=== PATIENT | male | born 2000 | race Caucasian/White ===

== ENCOUNTER 2018-12-02 01:42 | Inpatient (IN) ==
[2018-12-02] MEDS ORDERED: XYLOCAINE 1%/SOD BICARB 20 ML VIAL INFIL ONE (02:05)
[2018-12-02 02:13] LABS: Basophils # (auto) 0.04 K/uL (0-0.2); Basophils % (auto) 0.5 %; Eosinophils % (auto) 1.3 %; Hematocrit (blood only) 45.1 % (42-52); Hemoglobin 16.4 g/dL (14.0-18.0); Immature Granulocytes # (auto) 0.04 K/uL (0.00-0.02); Immature Granulocytes % (auto) 0.5 %; Lymphocytes # (auto) 3.79 K/uL (1.2-3.4); Lymphocytes % (auto) 49.5 %; Mean Corpuscular Hgb Conc 36.4 g/dL (32-36); Mean Corpuscular Volume 84.9 fL (80-100); Mean Platelet Volume 8.7 fL (7.4-10.4); Monocytes # (auto) 0.66 K/uL (0.11-0.59); Monocytes % (auto) 8.6 %; Neutrophils # (auto) 3.02 K/uL (1.4-6.5); Neutrophils % (auto) 39.6 %; Platelet Count 248 K/uL (130-400); RDW Coefficient of Variation 13.5 % (11.5-14.5); RDW Standard Deviation 41.5 fL (36.4-46.3); Red Blood Count 5.31 M/uL (4.7-6.1); White Blood Count 7.65 K/uL (4.8-10.8)
[2018-12-02 02:30] LABS: Albumin Level 4.4 gm/dl (3.4-5.0); Calcium 8.9 mg/dl (8.5-10.1); Creatinine Clr Calc Pharmacy 116.3 ml/min; Est GFR (African American) 144.7; Est GFR (Non-African American) 124.8; Potassium 4.1 mmol/L (3.5-5.1)
[2018-12-02 02:40] LABS: Albumin Globulin Ratio 1.3 (0.9-2); Bilirubin,Total 0.7 mg/dl (0.2-1); Globulin 3.4 gm/dl (2.5-4.0); Total Protein 7.8 gm/dl (6.4-8.2)
[2018-12-02 02:44] LABS: Acetaminophen < 2 ug/ml (10-30); Salicylate < 1.7 mg/dl (2.8-20)
[2018-12-02] MEDS ORDERED: IBUPROFEN 600 MG TAB PO STA (04:06)
[2018-12-02 05:33] LABS: Appearance Urine Clear (Clear); Bilirubin Urine Negative (Negative); Blood Urine Negative (Negative); Color Urine Yellow; Glucose Urine UA Negative (Negative); Ketones Urine Negative (Negative); Leukocyte Esterase Urine Negative (Negative); Nitrite Urine Negative (Negative); Protein Urine Negative (Negative); Specific Gravity Urine 1.022 (1.000-1.030); Urobilinogen Urine Negative (Negative); pH Urine 5.5 (4.5-7.5)
[2018-12-02 05:52] LABS: Amphetamines+Metham, Urine Neg (Neg); Barbiturates, Urine Neg (Neg); Benzodiazepine, Urine Neg (Neg); Cocaine, Urine Neg (Neg); MDMA (Ecstacy), Urine Neg (Neg); Methadone, Urine Neg (Neg); Opiate, Urine Neg (Neg); Phencyclidine, Urine Neg (Neg)
--- NOTE | 2018-12-02 06:03 | Emergency Department Note ---
Entered by Morena Yee acting as a scribe for History of Present Illness General Chief complaint: Mental Health Evaluation Source: patient Limitations: no limitations History of Present Illness Onset (ago): hour(s) (1.5) Location: upper extremity (left wrist) Severity: similar to prior episodes Pain Consistency: + other (episode of laceration) Quality: + other (laceration) Associated symptoms: + denies other symptoms The patient is a 18 year old male who presents to the Emergency Room with complaints of two lacerations on his left wrist that occurred 1.5 hours ago. He states that he cut himself with a razor with the intent to kill himself. The patient notes that he had a similar episode of self-harm a few days ago, but this laceration is more severe. He states that he was drinking alcohol at a friend's place prior to the episode of self-harm. The patient reports that he was dropped off at home by a friend, and his friend tried to "talk him off the edge." He states that his friend removed anything that he felt could have been harmful, but he did not remove the razor blades. The patient states that he cut himself tonight, because he's "not really happy." He notes that it was a "slow and steady build up" to the episode of self-harm this morning. He states that he "doesn't feel like he'd go through killing himself." The patient states that he called the police, because he realized "how bad it was." He denies any other symptoms. The patient reports that he speaks to a professional about his depression reg ularly, noting that he calls when he's in [place] and meets in-person when he's at home. He states that his parents know about his history of depression, but they do not know about his history of self-harm. The patient reports that he's "doing fine" in school. He admits to drinking socially. The patient denies any health problems. He notes a history of depression, stating that it has been worsening recently. Home Medications Home Medications Medication Instructions Recorded Confirmed Type escitalopram oxalate [Lexapro] 20 mg PO DAILY 12/02/18 12/02/18 History Allergies Allergy/AdvReac Type Severity Reaction Status Date / Time No Known Allergies Allergy Verified 12/02/18 02:05 Past Med/Surg History Medical History Depression Self-harming behavior Family History Other No pertinent family history Social History Communication Ability: Effective Current Living Situation: Alone current occupational status: student Feels Safe at Home: Yes Smoking Status: Never smoker Review of Systems See HPI for pertinent positives & negatives. and A total of 10 systems reviewed and were otherwise negative Physical Exam Vital Signs Vital Signs - 24 hr 12/02/18 01:46 12/02/18 03:12 12/02/18 05:17 Pulse Rate 89 Pulse Rate [Right] 65 67 Pulse Rhythm Regular Respiratory Rate 16 16 18 Respiratory Effort / Characteristics Non-Labored Spontaneous Non-Labored Spontaneous Non-Labored Spontaneous Respiratory Depth Normal Normal Normal Respiratory Pattern Regular Blood Pressure 134/85 Blood Pressure [Right Arm] 117/70 116/75 Blood Pressure Mean 101 Blood Pressure Mean [Right Arm] 85 88 Blood Pressure Position Sitting Blood Pressure Position [Right Arm] Sitting Pulse Oximetry 98 99 97 Oxygen Delivery Method Room Air Room Air Room Air 12/02/18 06:39 Pulse Rate 53 L Pulse Rate [Right] Pulse Rhythm Respiratory Rate 18 Respiratory Effort / Characteristics Respiratory Depth Respiratory Pattern Blood Pressure 113/51 L Blood Pressure [Right Arm] Blood Pressure Mean Blood Pressure Mean [Right Arm] Blood Pressure Position Blood Pressure Position [Right Arm] Pulse Oximetry 98 Oxygen Delivery Method Room Air HEENT: Head - normocephalic and atraumatic Pupils are equal, round, and reactive to light. Extraocular eye muscles are intact, and sclera are anicteric. Nose - moist nasal mucosa without discharge. Mouth - moist buccal mucosa. Oropharynx is nonerythematous and there is no tonsillar exudate or edema noted. Neck: Supple; no JVD, nuchal rigidity, cervical lymphadenopathy, or auscultated bruits. Heart: Regular rate and rhythm. There is a normal S1 and S2 with no murmurs, clicks, or gallops appreciated. Lungs: Clear to auscultation bilaterally with no wheezes, rales, or rhonchi. Abdomen: Soft, completely nontender, nondistended, with good bowel sounds. There are no palpable pulsatile masses or hepatosplenomegaly. There is no guarding, rigidity, or rebound noted. Extremities: No evidence of cyanosis, clubbing, or edema. There are easily palpable peripheral pulses. Left ventral wrist has 2 lacerations. The distal laceration is superficial, and the proximal laceration is deeper. The proximal laceration will need sutures, and it is 3 cm in length. Skin: warm and dry with good turgor and no rashes. Psych: Flat affect. Admits to increasing depression and self-harm. Procedures Free Text Procedures Location: left wrist Total length: 3cm Complexity: simple Verbal consent was obtained. A time out was taken and the correct patient and site identified. The skin was prepped with betadine. The target area was anesthetized with 1.5 ml of 1% lidocaine without epinephrine. Copious irrigation was performed using sterile water. The skin was re-prepped with betadine and a sterile field set. The wound was explored for foreign bodies and none found. Examination revealed no injury to deep structures such as tendons, bone, or significant blood vessels. Debridement was not performed. The wound edges were approximated using 5, 4-0 simple interrupted ethilon sutures. Hemostasis and excellent approximation was achieved. Antibacterial ointment and a sterile dressing applied. Detailed wound care instructions and signs and symptoms of infection reviewed with the patient. No complications and the patient tolerated the procedure well. Course 0147: Past medical records reviewed. The patient was evaluated in room A08, and a complete history and physical examination were performed. Labs were drawn as above. 0301: I performed a laceration repair on the patient. 0405: The patient complained of wrist pain. 0406: Motrin 600 mg PO. The patient will be more sober around 5 AM. He will be evaluated by the ED psychiatric keycase assembler at that time 0546: I spoke with the patient about his options, and he states that he would sign himself in. 0621: The patient was admitted to [address] [place] [address]. Administered Medications Discontinued Medications Ibuprofen (Motrin) 600 mg PO NOW STA Stop: 12/02/18 04:07 Last Admin: 12/02/18 04:12 Dose: 600 mg Documented by: [id number] Lidocaine HCl (Buffered Lidocaine 1%) 20 ml INFIL NOW ONE Stop: 12/02/18 02:06 Last Admin: 12/02/18 03:05 Dose: 20 ml Documented by: [id number] Medical Decision Making Differential Diagnosis The differential diagnosis includes: suicide attempt, self-mutilation, mood disorder, and depression Medical Records Attestation: I reviewed the patient's medical records. Home Medications Current Medication List: was personally reviewed by me Laboratory Data Attestation: I reviewed the patient's lab results. Result diagrams: 12/02/18 02:01 12/02/18 02:01 Lab Results 12/02/18 12/02/18 12/02/18 Range/Units 02:01 02:01 02:01 WBC 7.65 (4.8-10.8) K/uL RBC 5.31 (4.7-6.1) M/uL Hgb 16.4 (14.0-18.0) g/dL Hct 45.1 (42-52) % MCV 84.9 (80-100) fL MCH 30.9 (25-34) pg MCHC 36.4 H (32-36) g/dL RDW Std Deviation 41.5 (36.4-46.3) fL RDW Coeff of Jeff 13.5 (11.5-14.5) % Plt Count 248 (130-400) K/uL MPV 8.7 (7.4-10.4) fL Immature Gran % (Auto) 0.5 % Neut % (Auto) 39.6 % Lymph % (Auto) 49.5 % [place] % (Auto) 8.6 % Eos % (Auto) 1.3 % Baso % (Auto) 0.5 % Immature Gran # (Auto) 0.04 H (0.00-0.02) K/uL Neut # (Auto) 3.02 (1.4-6.5) K/uL Lymph # (Auto) 3.79 H (1.2-3.4) K/uL [place] # (Auto) 0.66 H (0.11-0.59) K/uL Eos # (Auto) 0.10 (0-0.5) K/uL Baso # (Auto) 0.04 (0-0.2) K/uL Sodium 144 (136-145) mmol/L Potassium 4.1 (3.5-5.1) mmol/L Chloride 109 H (98-107) mmol/L Carbon Dioxide 29 (21-32) mmol/L Anion Gap 6.0 (3-11) BUN 12 (7-18) mg/dl Creatinine 0.86 (0.6-1.4) mg/dl Est Cr Clr Drug Dosing 116.3 ml/min Est GFR ( Amer) 144.7 Est GFR (Non-Af Amer) 124.8 BUN/Creatinine Ratio 14.0 (10-20) Glucose 83 (70-99) mg/dl Calcium 8.9 (8.5-10.1) mg/dl Total Bilirubin 0.7 (0.2-1) mg/dl AST 24 (15-37) U/L ALT 31 (12-78) U/L Alkaline Phosphatase 102 (45-117) U/L Total Protein 7.8 (6.4-8.2) gm/dl Albumin 4.4 (3.4-5.0) gm/dl Globulin 3.4 (2.5-4.0) gm/dl Albumin/Globulin Ratio 1.3 (0.9-2) TSH 3.070 (0.300-4.500) uIu/ml Urine Color Urine Appearance (Clear) Urine pH (4.5-7.5) Ur Specific [place] (1.000-1.030) Urine Protein (Negative) Urine Glucose (UA) (Negative) Urine Ketones (Negative) Urine Blood (Negative) Urine Nitrite (Negative) Urine Bilirubin (Negative) Urine Urobilinogen (Negative) Ur Leukocyte Esterase (Negative) Salicylates < 1.7 L (2.8-20) mg/dl Urine Opiates Screen (Neg) Ur Methadone, Qual (Neg) Acetaminophen < 2 L (10-30) ug/ml Urine Barbiturates (Neg) Ur Phencyclidine (PCP) (Neg) U Amphetamin/Meth Scrn (Neg) MDMA (Ecstasy) Screen (Neg) U Benzodiazepines Scrn (Neg) Ur Cocaine Metabolite (Neg) U Marijuana (THC) Screen (Neg) Ethyl Alcohol mg/dL (0-3) mg/dl 12/02/18 12/02/18 12/02/18 Range/Units 02:01 05:23 05:23 WBC (4.8-10.8) K/uL RBC (4.7-6.1) M/uL Hgb (14.0-18.0) g/dL Hct (42-52) % MCV (80-100) fL MCH (25-34) pg MCHC (32-36) g/dL RDW Std Deviation (36.4-46.3) fL RDW Coeff of Jeff (11.5-14.5) % Plt Count (130-400) K/uL MPV (7.4-10.4) fL Immature Gran % (Auto) % Neut % (Auto) % Lymph % (Auto) % [place] % (Auto) % Eos % (Auto) % Baso % (Auto) % Immature Gran # (Auto) (0.00-0.02) K/uL Neut # (Auto) (1.4-6.5) K/uL Lymph # (Auto) (1.2-3.4) K/uL [place] # (Auto) (0.11-0.59) K/uL Eos # (Auto) (0-0.5) K/uL Baso # (Auto) (0-0.2) K/uL Sodium (136-145) mmol/L Potassium (3.5-5.1) mmol/L Chloride (98-107) mmol/L Carbon Dioxide (21-32) mmol/L Anion Gap (3-11) BUN (7-18) mg/dl Creatinine (0.6-1.4) mg/dl Est Cr Clr Drug Dosing ml/min Est GFR ( Amer) Est GFR (Non-Af Amer) BUN/Creatinine Ratio (10-20) Glucose (70-99) mg/dl Calcium (8.5-10.1) mg/dl Total Bilirubin (0.2-1) mg/dl AST (15-37) U/L ALT (12-78) U/L Alkaline Phosphatase (45-117) U/L Total Protein (6.4-8.2) gm/dl Albumin (3.4-5.0) gm/dl Globulin (2.5-4.0) gm/dl Albumin/Globulin Ratio (0.9-2) TSH (0.300-4.500) uIu/ml Urine Color Yellow Urine Appearance Clear (Clear) Urine pH 5.5 (4.5-7.5) Ur Specific [place] 1.022 (1.000-1.030) Urine Protein Negative (Negative) Urine Glucose (UA) Negative (Negative) Urine Ketones Negative (Negative) Urine Blood Negative (Negative) Urine Nitrite Negative (Negative) Urine Bilirubin Negative (Negative) Urine Urobilinogen Negative (Negative) Ur Leukocyte Esterase Negative (Negative) Salicylates (2.8-20) mg/dl Urine Opiates Screen Neg (Neg) Ur Methadone, Qual Neg (Neg) Acetaminophen (10-30) ug/ml Urine Barbiturates Neg (Neg) Ur Phencyclidine (PCP) Neg (Neg) U Amphetamin/Meth Scrn Neg (Neg) MDMA (Ecstasy) Screen Neg (Neg) U Benzodiazepines Scrn Neg (Neg) Ur Cocaine Metabolite Neg (Neg) U Marijuana (THC) Screen Neg (Neg) Ethyl Alcohol mg/dL 139.0 H (0-3) mg/dl Blood Pressure Blood Pressure Findings: Normal blood pressure Blood Pressure Disposition: did not require urgent referral MDM Narrative The patient is a 18 year old male who presents to the Emergency Room with complaints 2 lacerations on his left wrist that occurred 1.5 hours ago. The patient was drinking alcohol tonight when he felt more depressed. He broke apart a shaving razor to remove the razor blade to lacerate his left wrist. Once he began to bleed, he called 911. The patient admits that he was trying to harm himself. He had a similar attempt 2 days ago. Once the patient was medically cleared, he was evaluated by the ED psychiatric keycase assembler and decided he would sign himself in voluntarily. He was accepted on 3 S. Impression & Plan Self-inflicted laceration of wrist, Alcohol intoxication Discharge Plan Visit Data Chief Complaint: Mental Health Evaluation ED Provider: Dafne Rivas Discharge Problem: Self-inflicted laceration of wrist, Alcohol intoxication Patient Disposition: Admitted As Inpatient Discharge Instructions Interventions: ED Discharge Assessment Last Done: 12/02/18 06:39 Forms Stand Alone Forms: My [facility] Prescriptions Prescriptions: No Action escitalopram oxalate [Lexapro] 20 mg Tablet 20 mg PO DAILY RF: 0 Referrals Referrals: PCP,NO [Primary Care Provider] - Discharge Problem: Self-inflicted laceration of wrist Qualifiers: Encounter type: initial encounter Laterality: left Qualified Code(s): S61.512A - Laceration without foreign body of left wrist, initial encounter Alcohol intoxication Qualifiers: Complication of substance-induced condition: uncomplicated Qualified Code(s): F10.920 - Alcohol use, unspecified with intoxication, uncomplicated The scribe's documentation has been prepared under my direction and personally reviewed by me in its entirety. I confirm that the note above accurately reflects all work, treatment, procedures, and medical decision making performed by me.
[2018-12-02] MEDS ORDERED: ALUMINUM/MAGNESIUM SUSP 30 ML UDC PO PRN (06:13)
[2018-12-02] MEDS ORDERED: MAGNESIUM HYDROXIDE SUSP 30 ML UDC PO PRN (06:13)
[2018-12-02] MEDS ORDERED: ACETAMINOPHEN 325 MG TAB PO PRN (06:13)
[2018-12-02] MEDS ORDERED: SODIUM CHLORIDE 0.65% NA SOLN 45 ML (OCEAN) PRN (06:13)
[2018-12-02] MEDS ORDERED: BISMUTH SUBSALICYLATE PER ML OMNICELL CHARGE PO PRN (06:13)
--- NOTE | 2018-12-02 08:27 | History & Physical ---
Date of Service December 02, 2018 Impression / Recommendations Impression 18-year-old male admitted voluntarily for inpatient psychiatric treatment. Patient reporting worsening depressive symptoms along with episodes of suicidal ideation. Depressive symptoms occurring at baseline however SI precipitated by alcohol consumption. Active furtherance to include self-inflicted laceration to his left wrist, severe enough to require medical attention and sutures. Patient was willing for inpatient psychiatric treatment, and is agreeable to medication recommendations as he does not feel like his current regimen has been effective to improve his mood. We discussed various medication options including cross taper from escitalopram to another antidepressive agent (sertraline or fluoxetine discussed) or the option to add bupropion to augment his current regimen and improve mood and energy. Patient was provided with patient information on the medications discussed, as he desired to review the options further. Pt reports a preference to begin bupropion in combination with current dose of escitalopram 20mg. Risks, benefits, and potential side effects were discussed with the patient. Pt denies history of a seizure disorder. The patient verbalized understanding and is agreeable to begin bupropion SR 100mg qAM. During his admission, the patient will be encouraged to participate in group and recreational programming, consider outpatient supports to involve in a family meeting, and complete an adequate safety plan to utilize after discharge. Patient reports current outpatient providers close to home, but may benefit from more local support during the school year. We will explore this with him further. At this time, inpatient psychiatric treatment is medically necessary due to worsening condition, multiple episodes of SIB with "intent to harm", and current substance use behaviors which further precipitate suicidal ideation. Patient is at high risk of harm to self if discharged prior to medicating risk factors and completing an adequate safety plan. (1) Suicidal ideation: 12/02 - Admitted to a locked inpatient behavioral health unit, on q15 minute safety checks - Encourage medication initiation/adjustments as indicated - Encourage participation in group and recreational therapies - Gather collateral information from outpatient providers - Suggest family meeting to involve outpatient supports in safety planning - Arrange appropriate aftercare (2) Major depressive disorder with single episode: 12/02 - Reviewed response to current medication regimen; discussed options for antidepressant adjustments to better target current symptoms - Patient education information provided on sertraline, fluoxetine, and bupropion. - Pt reports preference for bupropion, will give 100mg-SR starting tomorrow morning; planning to continue escitalopram 20mg - Request records from outpatient providers - Encourage involvement of outpatient supports - Encourage development of healthy and effective coping strategies (3) Self-inflicted laceration of wrist: 12/02 - Lacerations to left wrist were examined, treated, and dressed in the [facility] room - We will continue to monitor her status during dressing changes - Bacitracin ordered for use as needed Encounter type: initial encounter Laterality: left Qualified Code(s): S61.512A - Laceration without foreign body of left wrist, initial encounter (4) Alcohol consumption binge drinkin/4 -Brief intervention was offered and accepted Intervention was greater than 5 min in length. Brief interventions include: 1. Assess Readiness to Quit, 2. Advise: Help Patient to Reduce or Abstain from Alcohol, 3. Agree: Set Specific, Feasible Goals, 4. Assist: Anticipate barriers, Problem-Solving Solutions. Social work to 5. Arrange: Referrals to appropriate treatment. Summary of intervention: The patient is in contemplation stage with regards to transtheoretical model of change. The patient is advised to decrease alcohol consumption due to depressant effects and risk of interactions with prescription medications. The patient was advised of recommendations for abstinence from alcohol and other abusable substances and to attend substance abuse treatment at discharge, and will be provided with recovery materials to continue to education self on how to cope with their condition without drinking. Pt is highly conside ring abstinence from alcohol use as he has noticed its effect on mood. Will continue to provide patient with appropriate supports to achieve this goal. Inventory Assets Strengths: support of friends and family; established outpatient providers Needs: Consideration of current substance use behaviors; adjustment to medication regimen Risk Factors Assessment Male: Yes : Yes Do You Have Access To A Gun?: No Health Problems: No Mental Health Diagnoses: Yes Substance Use Disorders: No Previous Attempt: No (but superficially cut wrists 1 week ago) Family History of Suicide: No Previous Psychiatric Hospitalization: No Hopelessness: Yes (occasionally) Smoker: No Protective Factors Assessment Jainism Beliefs: No : No Responsible for Young Children: No Employed: Yes (through the [email or web address]) Stable Relationships: No Supportive Family: Yes Good Rapport with Provider: Yes Psychiatric History Identifying Data CHRISTIAN DAMICO is a 18-year-old M who currently lives in an apartment and attends [employer]. Pt has a history of treatment for depression, and was admitted on 12/02/18 06:13 on a 201 voluntary commitment for worsening depressive symptoms, SI, and having deeply cut his left wrist. Information is gathered from the patient and is considered to be reliable. Chief Complaint "Um...last night we were drinking, having fun, but then my mood turned a little bit. I don't know why, but it's happened before". 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 Prior to admission the patient was reportedly consuming alcohol with friends, suicidal ideation developed, and patient had reportedly slit his left left wrist to the point of requiring sutures. It is reported that the patient called 911 after realizing that the lacerations were deep and needed medical attention. He does admit to a similar situation occurring about 1 week ago, with more superficial superficial cuts. Patient reports to this provider events of last evening which include the patient consuming alcohol with several of his close friends. He states they were having a good time, he was intoxicated, and then realized that his mood had "turned". The patient states that he had reported his worsening mood to his friend, who walked him home to his apartment. Patient states that his friend stayed with him, processed his mood and thoughts, and attempted to remove all sharp objects from his apartment prior to leaving. The patient states, "it was then that I di smantled the razor." Patient admits to making deep cuts to his left wrist, and states he was scared when he was unable to control the bleedingtherefore calling 911. The patient feels that his alcohol use contributed to the situation, as "this is not the first time, but I have always been drunk." Patient reports to this provider That he has noticed worsening mood over the last year, reaching this level of severity in the last 2 weeks. The patient states, "I feel like this is really because of internal stressors, nothing external. I am just not satisfied with who I am." The patient reports a difficult transition to the college setting and states that he had initially attended the [employer] for 1 semester after graduating from high school. He had difficulty making friends at [facility] [employer] and had visited the [facility] several times. The patient had made the decision to transfer to [employer] for his second semester freshman year, but was met with new challenges. He states he had a "awful roommate. He never showered and he was nocturnal." He states this greatly affected his sleep as well as his mood. The patient has been able to connect with several close fr iends but continues to struggle with the idea that "I still feel like I am missing out." The patient also holds himself to an academic standard, and although grades have not significantly changed, he is consistently worried about his academic performance. Patient also reports significant anxiety with public speaking stating, "if I find out a class has public speaking all drop it." He does not endorse any physical symptoms of acute anxiety, but does feel uncomfortable in these situations and therefore avoids them. The patient also states that he and his ex-girlfriend went through a breakup in the last 3 weeks. He states that they have been dating for 3 years but are "better as friends." Patient does not report this is a significant stressor, on the contrary stating that he felt "relieved." He states that they remain very close friends and that "she knows me better than anyone." The patient does have established outpatient providers: his psychiatrist, as well as a therapist he speaks with via phone once a week. He reports a limited number of medication trials, but does state he has been frustrated with previous medications. Most recently he has been taking escitalopram 20 mg, but is unsure if it is overly effective. He does state, "I think it is buffering something, but I am not sure how much it is helping." Other known psychotropic medication trials include Trintellix and trazodone, which he states he continues to take for sleep as needed. Patient endorses depressive symptoms of low mood, decreased energy, difficulty falling asleep, frequent nighttime awakening, general fatigue, and occasional feelings of hopelessness. The patient does endorse general feelings to "escape" when he is sober, but denies overt suicidal ideation, plan, or intent. We discussed his current alcohol use, in which he states he has recently been drinking to the point of getting drunk 3 nights a week. Patient states this was not generally normal for him, and that he has seen its effect on his mood. The patient states, "I know I need to cut back, ideally not do it at all. It is only when I am drunk that I get into the situations." The patient admits that in those moments, he does believe he is cutting with the "intent to harm." Pt denies HI, history of SIB prior to the last few weeks, A/V hallucinations, paranoia, bj/hypomania, other symptoms more suggestive of a bipolar presentation, OCD, PTSD, eating disorder, and other specific psychiatric symptoms. Past Psychiatric History Previous Psych History: Patient reports onset of depressive symptoms in late high school, extending into his college transition. He does have a psychiatrist at home who manages his current prescription of escitalopram. He is also established with a therapist whom he speaks with over the phone once a week. This is the patient's only inpatient psychiatric admission. Current Psychiatric Diagnosis: Depression Outpatient Services: Psychiatrist - [facility] Therapist - Dr. Arreola - [facility] Previous Psych Admissions: None Do You Have Access To A Gun?: No History of Previous Suicide Attempt: No Describe Attempts in the Past: Cut for stress relief appx: 2-3 weeks ago Past Medication Trials: 1. Trintellix - unsure if beneficial 2. Trazodone - beneficial for sleep Past Head Trauma/Neuro History History of Concussion/Seizure: No Allergies Allergy/AdvReac Type Severity Reaction Status Date / Time No Known Allergies Allergy Verified 12/02/18 02:05 Home Medications Home Medications Medication Instructions Recorded Confirmed Type escitalopram oxalate [Lexapro] 20 mg PO DAILY 12/02/18 12/02/18 History Family History Family History of: Depression ("all on my dad's side"; specifically paternal grandmother) Family Mental Health History Comment: Mental health concerns for possible depression, but states exclusive to extended family. Alcohol History Hx of Alcohol Use Over the Past 12 Months: Yes ("Socially", drinks approx 4-5 drinks with friends on weekends) AUDIT Total Score: 5 Smoking Use Smoking Status: Never smoker Substance History Hx of Prescription Med Misuse Over the Past 12 Months: No Hx of Over the Counter Med Misuse Over the Past 12 Months: No Hx of Inhalent Misuse Over the Past 12 Months: No Hx of Organic Substance Use Over the Past 12 Months: No Hx of Illegal Substances/Street Drug Use Over Past 12 Months: No Problems as a Result of Past Substance Use: None Identified Personal History Living Arrangements: APartment Childhood: Mother and father living at home in [place], [place] with the patient's paternal grandmother. Pt has a younger brother attending college in [facility]. 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[employer]) Marital Status: Single Number Of Children: N/A Beliefs That Will Affect Care: None Current Legal Problems: No Hx Traumatic Life Events: No Patient History Medical History Depression Self-harming behavior Family History Other No pertinent family history Social History Preferred Language: Yemeni Communication Ability: Effective Drawing Hand Required: No Beliefs That Will Affect Care: None Current Living Situation: Alone current occupational status: student Feels Safe at Home: Yes Smoking Status: Never smoker Review of Systems Constitutional: reports excessive fatigue Cardiovascular: denied Respiratory: denied Gastrointestinal: denied Neurological: denied Musculoskeletal: reports chronic knee pain Integumentary: reports lacerations to left wrist Psychiatric: denies symptoms other than stated above Total of at least 10 systems reviewed, pertinent positives as above and in HPI. Physical Exam Psychiatric Orientation: alert, oriented x 3 and cooperative Apperance: appropriately dressed, appropriately groomed and appeared stated age Healthy, but thin male sitting in no acute distress. Hair well- groomed. Dressed in a t-shirt and jeans. Hygiene is appropriate. Eye Contact: good eye contact Motor Behavior: steady gait and station and no abnormal motor movements Speech: normal rate/rhythm/volume of speech (monotone) Affect: + depressed affect and + flat affect Mood: + depressed mood ("just low") Thought Process: goal directed thought process, linear/logical thought process and clear/coherent thought process Thought Content: reality based without delusions Suicidal Thoughts: denies suicidal thoughts (in the context of sobriety;) and denies suicidal intent; + reports suicidal plan (two occasions of slitting wrists) Denies overt SI when sober; however, has had two acts of furtherance while intoxicated leading to self-harm requiring medical attention Homicidal Thoughts: denies homicidal thoughts Hallucinations: no auditory hallucinations and no visual hallucinations Cognition: recent memory grossly intact, remote memory grossly intact, attention grossly intact and language grossly intact Estimated Intelligence: consistent with education level Insight: + fair insight (only in the context of sobriety) Judgement: + fair judgement (only in the context of sobriety) Vital Signs (Past 24 Hours) Last Vital Signs Pulse 53 L 12/02/18 06:39 Resp 18 12/02/18 06:39 BP 113/51 L 12/02/18 06:39 Pulse Ox 98 12/02/18 06:39 A physical exam was performed in the ER prior to admission to the unit by Dr. Dafne Rivas DO. I accept that physical as correct/medical clearance for the inpatient physical exam. Results & Data Laboratory Results Laboratory Results - last 24 hr 12/02/18 12/02/18 12/02/18 02:01 02:01 02:01 WBC 7.65 RBC 5.31 Hgb 16.4 Hct 45.1 MCV 84.9 MCH 30.9 MCHC 36.4 H RDW Std Deviation 41.5 RDW Coeff of Jeff 13.5 Plt Count 248 MPV 8.7 Immature Gran % (Auto) 0.5 Neut % (Auto) 39.6 Lymph % (Auto) 49.5 [place] % (Auto) 8.6 Eos % (Auto) 1.3 Baso % (Auto) 0.5 Immature Gran # (Auto) 0.04 H Neut # (Auto) 3.02 Lymph # (Auto) 3.[address] [place] # (Auto) 0.66 H Eos # (Auto) 0.10 Baso # (Auto) 0.04 Sodium 144 Potassium 4.1 Chloride 109 H Carbon Dioxide 29 Anion Gap 6.0 BUN 12 Creatinine 0.86 Est Cr Clr Drug Dosing 116.3 Est GFR ( Amer) 144.7 Est GFR (Non-Af Amer) 124.8 BUN/Creatinine Ratio 14.0 Glucose 83 Calcium 8.9 Total Bilirubin 0.7 AST 24 ALT 31 Alkaline Phosphatase 102 Total Protein 7.8 Albumin 4.4 Globulin 3.4 Albumin/Globulin Ratio 1.3 TSH 3.070 Urine Color Urine Appearance Urine pH Ur Specific [place] Urine Protein Urine Glucose (UA) Urine Ketones Urine Blood Urine Nitrite Urine Bilirubin Urine Urobilinogen Ur Leukocyte Esterase Salicylates < 1.7 L Urine Opiates Screen Ur Methadone, Qual Acetaminophen < 2 L Urine Barbiturates Ur Phencyclidine (PCP) U Amphetamin/Meth Scrn MDMA (Ecstasy) Screen U Benzodiazepines Scrn Ur Cocaine Metabolite U Marijuana (THC) Screen Ethyl Alcohol mg/dL 12/02/18 12/02/18 12/02/18 02:01 05:23 05:23 WBC RBC Hgb Hct MCV MCH MCHC RDW Std Deviation RDW Coeff of Jeff Plt Count MPV Immature Gran % (Auto) Neut % (Auto) Lymph % (Auto) [place] % (Auto) Eos % (Auto) Baso % (Auto) Immature Gran # (Auto) Neut # (Auto) Lymph # (Auto) [place] # (Auto) Eos # (Auto) Baso # (Auto) Sodium Potassium Chloride Carbon Dioxide Anion Gap BUN Creatinine Est Cr Clr Drug Dosing Est GFR ( Amer) Est GFR (Non-Af Amer) BUN/Creatinine Ratio Glucose Calcium Total Bilirubin AST ALT Alkaline Phosphatase Total Protein Albumin Globulin Albumin/Globulin Ratio TSH Urine Color Yellow Urine Appearance Clear Urine pH 5.5 Ur Specific [place] 1.022 Urine Protein Negative Urine Glucose (UA) Negative Urine Ketones Negative Urine Blood Negative Urine Nitrite Negative Urine Bilirubin Negative Urine Urobilinogen Negative Ur Leukocyte Esterase Negative Salicylates Urine Opiates Screen Neg Ur Methadone, Qual Neg Acetaminophen Urine Barbiturates Neg Ur Phencyclidine (PCP) Neg U Amphetamin/Meth Scrn Neg MDMA (Ecstasy) Screen Neg U Benzodiazepines Scrn Neg Ur Cocaine Metabolite Neg U Marijuana (THC) Screen Neg Ethyl Alcohol mg/dL 139.0 H Current Inpatient Medications Current Inpatient Medications: Current Inpatient Medications Acetaminophen (Tylenol) 650 mg PO Q4H PRN PRN Reason: Headache or Minor Fever Stop: 01/01/19 06:12 Al Hydrox/Mg Hydrox/Simethicone (Maalox) 30 ml PO Q4H PRN PRN Reason: GI Upset Stop: 01/01/19 06:12 Bismuth Subsalicylate (Kaopectate) 15 ml PO PRN PRN PRN Reason: Loose Stool Stop: 01/01/19 06:12 Escitalopram Oxalate (Lexapro) 20 mg PO QAM HELENA Stop: 01/01/19 08:59 Hydroxyzine HCl (Vistaril) 50 mg PO HSZ PRN PRN Reason: Insomnia Stop: 01/01/19 06:12 Hydroxyzine HCl (Vistaril) 25 mg PO Q4H PRN PRN Reason: Anxiety Stop: 01/01/19 06:12 Magnesium Hydroxide (Milk Of Magnesia) 30 ml PO DAILY PRN PRN Reason: Heartburn Stop: 01/01/19 06:12 Sodium Chloride ([place] Nasal) 1 - 2 sprays NA PRN PRN PRN Reason: Nasal Dryness/Congestion Stop: 01/01/19 06:12 CPT Code CPT Code Initial Hospital Care: [id number]
[2018-12-02] MEDS ORDERED: IBUPROFEN 600 MG TAB PO PRN (10:59)
[2018-12-02] MEDS: ESCITALOPRAM OXALATE 20 MG TAB PO SCH ×2 (11:00→16:25)
[2018-12-02] MEDS ORDERED: BACITRACIN OINT 15 GM TUBE EXT PRN (15:23)
[2018-12-03] MEDS: BuPROPion SR 100 MG TABCR PO SCH (09:29)
[2018-12-03] MEDS: ESCITALOPRAM OXALATE 20 MG TAB PO SCH (09:29)
--- NOTE | 2018-12-03 09:40 | Psychiatric Progress Note ---
Date of Service December 03, 2018 Impression / Recommendations Impression The somewhat reserved, the patient has been participating appropriately in treatment. He has been been attending groups as able since his admission yesterday. The patient has reportedly completed a safety plan and is scheduled for a family meeting with his parents later on this morning. Patient states they are generally supportive, but they have not had as much time to process the news of his recent self-injurious behavior and suicidality. The patient's current outpatient providers are established but several hours away; we will explore patient and parents interest in more local aftercare options. Patient had just received his first dose of bupropion, therefore unaware if any concerns with tolerability. Patient denies suicidality at this time, but given repeated attempts to harm himself in the setting of suicidality, it is recommended thorough aftercare and discharge planning be arranged prior to discharge, to avoid rapid decompensation on an outpatient basis. (1) Suicidal ideation: 12/02 - Admitted to a locked inpatient behavioral health unit, on q15 minute safety checks - Encourage medication initiation/adjustments as indicated - Encourage participation in group and recreational therapies - Gather collateral information from outpatient providers - Suggest family meeting to involve outpatient supports in safety planning - Arrange appropriate aftercare 12/03 - Denies suicidality or "negative thoughts" today - Benefiting from the few groups he has attended thus far in his stay (2) Major depressive disorder with single episode: 12/02 - Reviewed response to current medication regimen; discussed options for antidepressant adjustments to better target current symptoms - Patient education information provided on sertraline, fluoxetine, and bupropion. - Pt reports preference for bupropion, will give 100mg-SR starting tomorrow morning; planning to continue escitalopram 20mg - Request records from outpatient providers - Encourage involvement of outpatient supports - Encourage development of healthy and effective coping strategies 5 - Given bupropion SR 100mg this morning, will assess for any concerns with tolerability - Consider titration depending on side effects and anticipated length of stay (3) Self-inflicted laceration of wrist: 12/02 - Lacerations to left wrist were examined, treated, and dressed in the emergency room - We will continue to monitor her status during dressing changes - Bacitracin ordered for use as needed 4/5 - Pain relieved by Tylenol prn - Dressing changed routinely with assistance from nursing - No signs or symptoms of infection reported (4) Alcohol consumption binge drinkin/4 -Brief intervention was offered and accepted Intervention was greater than 5 min in length. Brief interventions include: 1. Assess Readiness to Quit, 2. Advise: Help Patient to Reduce or Abstain from Alcohol, 3. Agree: Set Specific, Feasible Goals, 4. Assist: Anticipate barriers, Problem-Solving Solutions. Social work to 5. Arrange: Referrals to appropriate treatment. Summary of intervention: The patient is in contemplation stage with regards to transtheoretical model of change. The patient is advised to decrease alcohol consumption due to depressant effects and risk of interactions with prescription medications. The patient was advised of recommendations for abstinence from alcohol and other abusable substances and to attend substance abuse treatment at discharge, and will be provided with recovery materials to continue to education self on how to cope with their condition without drinking. Pt is highly considering abstinence from alcohol use as he has noticed its effect on mood. Will continue to provide patient with appropriate supports to achieve this goal. Inventory Assets Strengths: support of friends and family; established outpatient providers Needs: Consideration of current substance use behaviors; adjustment to me dication regimen Risk Factors Assessment Male: Yes : Yes Do You Have Access To A Gun?: No Health Problems: No Mental Health Diagnoses: Yes Substance Use Disorders: No Previous Attempt: No (but superficially cut wrists 1 week ago) Family History of Suicide: No Previous Psychiatric Hospitalization: No Hopelessness: Yes (occasionally) Smoker: No Protective Factors Assessment Confucianist Beliefs: No : No Responsible for Young Children: No Employed: Yes (through the [employer]) Stable Relationships: No Supportive Family: Yes Good Rapport with Provider: Yes Interval History Identifying Information CHRISTIAN DAMICO is a 18-year-old M who currently lives in an apartment and attends [employer]. Pt has a history of treatment for depression, and was admitted on 12/02/18 06:13 on a 201 voluntary commitment for worsening depressive symptoms, SI, and having deeply cut his left wrist. Information is gathered from the patient and is considered to be reliable. Chief Complaint "Um, it's been ok". Review of Systems Notes Constitutional: denied Cardiovascular: denied Respiratory: denied Gastrointestinal: denied Neurological: denied Musculoskeletal/Integumentary: reports left wrist pain related to SIB Psychiatric: denies symptoms other than stated above Total of at least 10 systems reviewed, pertinent positives as above and in HPI. Sleep Information Total Hours of Sleep: 7.5 Sleep Comments: pt on q-15 minute checks Meal Information Percent Meal Consumed - Breakfast: 100 Percent Meal Consumed - Lunch: 100 Percent Meal Consumed - Dinner: 50 Subjective Subjective Patient was seen & assessed and interval progress reviewed with Treatment Team. Staff report that the patient is scheduled to have a family meeting with his parents today at 10:30. Pt has completed his safety plan in groups. The patient was seen today to assess progress since admission. He states he is doing well today, and had a decent night sleep. The patient shares with this provider that several of his friends visited him on the unit last evening, followed by both of his parents. He states last evening was the first chance he had to explain to his parents his worsening mood and recent self-injurious behaviors. He states, "they had a lot of questions, they have not had as much time to process." He reports that throughout the day yesterday he had noticed an improvement in his mood, and is appreciative of his ability to "get a better perspective" during his time here. The patient states he is not particularly nervous about his family meeting today, but is not sure what will be discussed. The patient had just received his dose of bupropion SR 100 mg prior to our en counter, but does not complain of any other physical concerns. The patient denies suicidality at this time, and appears invested in processing events and feelings leading to his admission. He states his goal for today is to "not have any negative thoughts, so I'm 1 for 1." Pt states he has not been experiencing passive SI, which had been ongoing in his sobriety as well over the last few weeks. Patient denies other psychiatric concerns today. Physical Exam Psychiatric Orientation: alert, oriented x 3 and cooperative Apperance: appropriately dressed (still in t-shirt and pajama pants this morning) and appropriately groomed Eye Contact: good eye contact Motor Behavior: no abnormal motor movements (observed while sitting in bed, reading) Speech: normal rate/rhythm/volume of speech Affect: + depressed affect (appearing less depressed, but remains somewhat blunted) and + blunted affect "I don't know, a little better today." Thought Process: goal directed thought process, linear/logical thought process and clear/coherent thought process Thought Content: reality based without delusions Suicidal Thoughts: denies suicidal thoughts and denies suicidal intent; + reports suicidal plan (two occasions of slitting wrists) Homicidal Thoughts: denies homicidal thoughts Hallucinations: no auditory hallucinations and no visual hallucinations Cognition: recent memory grossly intact, remote memory grossly intact, attention grossly intact and language grossly intact Estimated Intelligence: consistent with education level Insight: + fair insight (only in the context of sobriety) Judgement: + fair judgement (only in the context of sobriety) Vital Signs (Past 24 Hours) Last Vital Signs Temp 36.3 C L 12/03/18 06:56 Pulse 71 12/03/18 06:57 Resp 16 12/03/18 06:56 BP 104/63 12/03/18 06:57 Pulse Ox 100 12/02/18 08:10 Results & Data Current Inpatient Medications Current Inpatient Medications: Current Inpatient Medications Acetaminophen (Tylenol) 650 mg PO Q4H PRN PRN Reason: Headache or Minor Fever Stop: 01/01/19 06:12 Last Admin: 12/02/18 22:11 Dose: 650 mg Documented by: Al Hydrox/Mg Hydrox/Simethicone (Maalox) 30 ml PO Q4H PRN PRN Reason: GI Upset Stop: 01/01/19 06:12 Bacitracin (Bacitracin) 1 appln EXT TID PRN PRN Reason: Affected Skin Folds Stop: 01/01/19 15:22 Last Admin: 12/02/18 22:30 Dose: 1 appln Documented by: Bismuth Subsalicylate (Kaopectate) 15 ml PO PRN PRN PRN Reason: Loose Stool Stop: 01/01/19 06:12 Bupropion HCl (Wellbutrin-Sr) 100 mg PO QAM HELENA Stop: 01/02/19 08:59 Last Admin: 12/03/18 09:29 Dose: 100 mg Documented by: Escitalopram Oxalate (Lexapro) 20 mg PO QAM HELENA Stop: 01/01/19 08:59 Last Admin: 12/03/18 09:29 Dose: 20 mg Documented by: Hydroxyzine HCl (Vistaril) 50 mg PO HSZ PRN PRN Reason: Insomnia Stop: 01/01/19 06:12 Hydroxyzine HCl (Vistaril) 25 mg PO Q4H PRN PRN Reason: Anxiety Stop: 01/01/19 06:12 Ibuprofen (Motrin) 600 mg PO Q6H PRN PRN Reason: Pain Stop: 01/01/19 10:58 Last Admin: 12/02/18 11:17 Dose: 600 mg Documented by: Magnesium Hydroxide (Milk Of Magnesia) 30 ml PO DAILY PRN PRN Reason: Heartburn Stop: 01/01/19 06:12 Sodium Chloride ([place] Nasal) 1 - 2 sprays NA PRN PRN PRN Reason: Nasal Dryness/Congestion Stop: 01/01/19 06:12 Post Discharge Appointments Primary Care Physician Name Of Family Doctor: [facility] Provider Appointment Comment: Follow up as needed Psychiatrist Name of Psychiatrist: [facility] - Dr. Ryan Winters Psychiatrist's Psychiatric Appointment Comment: [address] [place] [id number] Therapist Name of Therapist: Dr. Arreola Therapist's Date of Therapist Appointment: 12/07/18 Therapy Appointment Comment: [address] [facility], [address] [facility], [place] [address] Plate Filler Name of Plate Filler: [facility] Phone Number for Plate Filler: [phone] Case Management Appointment Comment: [address] [place] [address] Contact Information Discharge Discharge [address]: [address] [place] [id number] Contact Information Comment: Home address: [address] [place] [id number] CPT Code CPT Code 65095 (1) Self-inflicted laceration of wrist Encounter type: initial encounter Laterality: left Qualified Code(s): S61.512A - Laceration without foreign body of left wrist, initial encounter
[2018-12-04] MEDS: ESCITALOPRAM OXALATE 20 MG TAB PO SCH (08:02)
[2018-12-04] MEDS: BuPROPion SR 100 MG TABCR PO SCH (08:02)
--- NOTE | 2018-12-04 14:38 | Discharge Summary ---
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 Prior to admission the patient was reportedly consuming alcohol with friends, suicidal ideation developed, and patient had reportedly slit his left left wrist to the point of requiring sutures. It is reported that the patient called 911 after realizing that the lacerations were deep and needed medical attention. He does admit to a similar situation occurring about 1 week ago, with more superficial superficial cuts. Patient reports to this provider events of last evening which include the patient consuming alcohol with several of his close friends. He states they were having a good time, he was intoxicated, and then realized that his mood had "turned". The patient states that he had reported his worsening mood to his friend, who walked him home to his apartment. Patient states that his friend stayed with him, processed his mood and thoughts, and attempted to remove all sharp objects from his apartment prior to leaving. The patient states, "it was then that I dismantled the razor." Patient admits to making deep cuts to his left wrist, and states he was scared when he was unable to control the bleedingtherefore calling 911. The patient feels that his alcohol use contributed to the situation, as "this is not the first time, but I have always been drunk." Patient reports to this provider That he has noticed worsening mood over the last year, reaching this level of severity in the last 2 weeks. The patient states, "I feel like this is really because of internal stressors, nothing external. I am just not satisfied with who I am." The patient reports a difficult transition to the college setting and states that he had initially attended the [employer] for 1 semester after graduating from high school. He had difficulty making friends at [employer] and had visited the [facility] several times. The patient had made the decision to transfer to [employer] for his second semester freshman year, but was met with new challenges. He states he had a "awful roommate. He never showered and he was nocturnal." He states this greatly affected his sleep as well as his mood. The patient has been able to connect with several close friends but continues to struggle with the idea that "I still feel like I am missing out." The patient also holds himself to an academic standard, and although grades have not significantly changed, he is consistently worried about his academic performance. Patient also reports significant anxiety with public speaking stating, "if I find out a class has public speaking all drop it." He does not endorse any physical symptoms of acute anxiety, but does feel uncomfortable in these situations and therefore avoids them. The patient also states that he and his ex-girlfriend went through a breakup in the last 3 weeks. He states that they have been dating for 3 years but are "better as friends." Patient does not report this is a significant stressor, on the contrary stating that he felt "relieved." He states that they remain very close friends and that "she knows me better than anyone." The patient does have established outpatient providers: his psychiatrist, as well as a therapist he speaks with via phone once a week. He reports a limited number of medication trials, but does state he has been frustrated with previous medications. Most recently he has been taking escitalopram 20 mg, but is unsure if it is overly effective. He does state, "I think it is buffering something, but I am not sure how much it is helping." Other known psychotropic medication trials include Trintellix and trazodone, which he states he continues to take for sleep as needed. Patient endorses depressive symptoms of low mood, decreased energy, difficulty falling asleep, frequent nighttime awakening, general fatigue, and occasional feelings of hopelessness. The patient does endorse general feelings to "escape" when he is sober, but denies overt suicidal ideation, plan, or intent. We discussed his current alcohol use, in which he states he has recently been drinking to the point of getting drunk 3 nights a week. Patient states this was not generally normal for him, and that he has seen its effect on his mood. The patient states, "I know I need to cut back, ideally not do it at all. It is only when I am drunk that I get into the situations." The patient admits that in those moments, he does believe he is cutting with the "intent to harm." Pt denies HI, history of SIB prior to the last few weeks, A/V hallucinations, paranoia, bj/hypomania, other symptoms more suggestive of a bipolar presentation, OCD, PTSD, eating disorder, and other specific psychiatric symptoms. Physical Exam Psychiatric Orientation: alert and oriented x 3 Apperance: appropriately dressed and appropriately groomed Eye Contact: good eye contact Motor Behavior: steady gait and station Speech: normal rate/rhythm/volume of speech Affect: euthymic affect "I'm very much improved" Thought Process: goal directed thought process Thought Content: no preoccupation Suicidal Thoughts: denies suicidal thoughts Homicidal Thoughts: denies homicidal thoughts Hallucinations: no auditory hallucinations and no visual hallucinations Cognition: recent memory grossly intact Estimated Intelligence: consistent with education level Insight: + fair insight Judgement: + fair judgement Vital Signs (Past 24 Hours) Last Vital Signs Temp 36.4 C L 12/04/18 07:17 Pulse 76 12/04/18 07:18 Resp 14 12/04/18 14:15 BP 105/68 12/04/18 07:18 Pulse Ox 100 12/02/18 08:10 Principal Diagnosis major depressive disorder, recurrent, moderate Psychiatric Data Patient was seen by me (Dr. Arevalo) for first time on day of discharge. He reports significant improvement and he/his family are requesting discharge today. He verbalizes safety plan and is aware to avoid lifting at gym with left wrist until sutures out/further directed by ED physician next week. He has an appointment within a few days of discharge with his therapist and a contact for a local therapist sooner prn. He is tolerating medication. Parents are in town and plan to spend the evening with him and day tomorrow. Day of Discharge Assessment see mental status exam above. He is stable for transition to outpatient level of care and is no longer meeting criteria for ongoing inpatient hospitalization, particularly against his wishes. As [facility] pharmacy will likely be closed prior to the completion of his discharge, rx for Wellbutrin was called to [facility] [place] at his request. Transition of Care Transition Of Care Record: was reviewed with the patient Advance Directives Advance Directives Information Provided: Yes Advance Directives: No Mental Health Advance Directive: No Advance Directives on File: No Living Will: No Power of Patient Services Manager: No Advance Directives Reason:: Declines as Mental Health Visit. Risk Factors Assessment Male: Yes : Yes Do You Have Access To A Gun?: No Health Problems: No Mental Health Diagnoses: Yes Substance Use Disorders: No Previous Attempt: No (but superficially cut wrists 1 week ago) Family History of Suicide: No Previous Psychiatric Hospitalization: No Hopelessness: Yes (occasionally) Smoker: No Protective Factors Assessment Shinto Beliefs: No : No Responsible for Young Children: No Employed: Yes (through the [employer]) Stable Relationships: No Supportive Family: Yes Good Rapport with Provider: Yes Tobacco Cessation at Discharge Tobacco Cessation Medication Prescribed at Discharge: Not Applicable/Non-Smoker Antipsychotic Medications n/a Total Time Total Time Spent: Greater Than 30 Minutes Discharge Data Lab Results 12/02/18 12/02/18 12/02/18 02:01 02:01 02:01 WBC 7.65 RBC 5.31 Hgb 16.4 Hct 45.1 MCV 84.9 MCH 30.9 MCHC 36.4 H RDW Std Deviation 41.5 RDW Coeff of Jeff 13.5 Plt Count 248 MPV 8.7 Immature Gran % (Auto) 0.5 Neut % (Auto) 39.6 Lymph % (Auto) 49.5 Cataño % (Auto) 8.6 Eos % (Auto) 1.3 Baso % (Auto) 0.5 Immature Gran # (Auto) 0.04 H Neut # (Auto) 3.02 Lymph # (Auto) 3.79 H Cataño # (Auto) 0.66 H Eos # (Auto) 0.10 Baso # (Auto) 0.04 Sodium 144 Potassium 4.1 Chloride 109 H Carbon Dioxide 29 Anion Gap 6.0 BUN 12 Creatinine 0.86 Est Cr Clr Drug Dosing 116.3 Est GFR ( Amer) 144.7 Est GFR (Non-Af Amer) 124.8 BUN/Creatinine Ratio 14.0 Glucose 83 Calcium 8.9 Total Bilirubin 0.7 AST 24 ALT 31 Alkaline Phosphatase 102 Total Protein 7.8 Albumin 4.4 Globulin 3.4 Albumin/Globulin Ratio 1.3 TSH 3.070 Urine Color Urine Appearance Urine pH Ur Specific Westby Urine Protein Urine Glucose (UA) Urine Ketones Urine Blood Urine Nitrite Urine Bilirubin Urine Urobilinogen Ur Leukocyte Esterase Salicylates < 1.7 L Urine Opiates Screen Ur Methadone, Qual Acetaminophen < 2 L Urine Barbiturates Ur Phencyclidine (PCP) U Amphetamin/Meth Scrn MDMA (Ecstasy) Screen U Benzodiazepines Scrn Ur Cocaine Metabolite U Marijuana (THC) Screen Ethyl Alcohol mg/dL 12/02/18 12/02/18 12/02/18 02:01 05:23 05:23 WBC RBC Hgb Hct MCV MCH MCHC RDW Std Deviation RDW Coeff of Jeff Plt Count MPV Immature Gran % (Auto) Neut % (Auto) Lymph % (Auto) Cataño % (Auto) Eos % (Auto) Baso % (Auto) Immature Gran # (Auto) Neut # (Auto) Lymph # (Auto) Cataño # (Auto) Eos # (Auto) Baso # (Auto) Sodium Potassium Chloride Carbon Dioxide Anion Gap BUN Creatinine Est Cr Clr Drug Dosing Est GFR ( Amer) Est GFR (Non-Af Amer) BUN/Creatinine Ratio Glucose Calcium Total Bilirubin AST ALT Alkaline Phosphatase Total Protein Albumin Globulin Albumin/Globulin Ratio TSH Urine Color Yellow Urine Appearance Clear Urine pH 5.5 Ur Specific Westby 1.022 Urine Protein Negative Urine Glucose (UA) Negative Urine Ketones Negative Urine Blood Negative Urine Nitrite Negative Urine Bilirubin Negative Urine Urobilinogen Negative Ur Leukocyte Esterase Negative Salicylates Urine Opiates Screen Neg Ur Methadone, Qual Neg Acetaminophen Urine Barbiturates Neg Ur Phencyclidine (PCP) Neg U Amphetamin/Meth Scrn Neg MDMA (Ecstasy) Screen Neg U Benzodiazepines Scrn Neg Ur Cocaine Metabolite Neg U Marijuana (THC) Screen Neg Ethyl Alcohol mg/dL 139.0 H Hospital Course (1) Suicidal ideation: 12/02 - Admitted to a locked inpatient behavioral health unit, on q15 minute safety checks - Encourage medication initiation/adjustments as indicated - Encourage participation in group and recreational therapies - Gather collateral information from outpatient providers - Suggest family meeting to involve outpatient supports in safety planning - Arrange appropriate aftercare 12/03 - Denies suicidality or "negative thoughts" today - Benefiting from the few groups he has attended thus far in his stay (2) Major depressive disorder with single episode: 12/02 - Reviewed response to current medication regimen; discussed options for antidepressant adjustments to better target current symptoms - Patient education information provided on sertraline, fluoxetine, and bupropion. - Pt reports preference for bupropion, will give 100mg-SR starting tomorrow morning; planning to continue escitalopram 20mg - Request records from outpatient providers - Encourage involvement of outpatient supports - Encourage development of healthy and effective coping strategies 45 - Given bupropion SR 100mg this morning, will assess for any concerns with tolerability - Consider titration depending on side effects and anticipated length of stay (3) Self-inflicted laceration of wrist: 4/ - Lacerations to left wrist were examined, treated, and dressed in the emergency room - We will continue to monitor her status during dressing changes - Bacitracin ordered for use as needed / - Pain relieved by Tylenol prn - Dressing changed routinely with assistance from nursing - No signs or symptoms of infection reported (4) Alcohol consumption binge drinkin/ -Brief intervention was offered and accepted Intervention was greater than 5 min in length. Brief interventions include: 1. Assess Readiness to Quit, 2. Advise: Help Patient to Reduce or Abstain from Alcohol, 3. Agree: Set Specific, Feasible Goals, 4. Assist: Anticipate barriers, Problem-Solving Solutions. Social work to 5. Arrange: Referrals to appropriate treatment. Summary of intervention: The patient is in contemplation stage with regards to transtheoretical model of change. The patient is advised to decrease alcohol consumption due to depressant effects and risk of interactions with prescription medications. The patient was advised of recommendations for abstinence from alcohol and other abusable substances and to attend substance abuse treatment at discharge, and will be provided with recovery materials to continue to education self on how to cope with their condition without drinking. Pt is highly considering abstinence from alcohol use as he has noticed its effect on mood. Will continue to provide patient with appropriate supports to achieve this goal. Post Discharge Appointments Primary Care Physician Name Of Family Doctor: [facility] Provider Appointment Comment: Follow up as needed Psychiatrist Name of Psychiatrist: [facility] - Dr. Ryan Winters Psychiatrist's Date of Appointment with Psychiatrist: 12/07/18 Time of Appointment with Psychiatrist: 16:00 Psychiatric Appointment Comment: [address] [place] [id number] Therapist Name of Therapist: Dr. Arreola Therapist's Date of Therapist Appointment: 12/07/18 Therapy Appointment Comment: [address], [address], [place] [address] [place] Tender Name of [place] Tender: [facility] Phone Number for [place] Tender: [phone] Case Management Appointment Comment: [address] [place] [address] Smoking Cessation Counseling Tobacco Cessation Medication Prescribed at Discharge: Not Applicable/Non-Smoker Contact Information Discharge Discharge Address: [address] [place] [id number] Contact Information Comment: Home address: [address], [place] [address] Discharge Plan Discharge Items Patient Disposition: Home - Self-Care Reason For Visit: MENTAL HEALTH EVAL/LAC ON WRIST Discharge Diagnosis: depression Discharge Goals: Improve disease control and Improve function Activity: Resume your previous activity Non-emergency contact: Therapist Call non-emergency contact if: you have any medication questions and your symptoms worsen Follow-up/Referrals: PCP,NO [Primary Care Provider] - Diet: Regular Addtl Provider Instructions: SPECIAL CARE INSTRUCTIONS: 1. Follow through with your scheduled aftercare appointments. If unable to keep an appointment, please call to reschedule. 2. Take your medication only as prescribed. Medication should not be changed or stopped without the approval of your doctor. In the event of worsening symptoms or concerns about side effects, contact your doctor immediately. 3. Utilize new healthy coping skills, anger management skills, and stress management skills learned during your hospitalization. Journal feelings and process them with a support person. Identify stressors or situations that may result in relapse, deterioration or inappropriate behaviors and develop a plan to deal with those issues. 4. If your coping skills are ineffective and you are in crisis, contact your outpatient providers for direction. If unable to reach your providers, please call the CAN HELP LINE AT or go to the closest Emergency Room. 5. Avoid alcohol and un-prescribed drugs. 6. You have been provided with the Mental Health Advance Directives Pamphlet for your review. AFTERCARE APPOINTMENTS: * Please call your insurance company prior to your scheduled appointment to confirm your aftercare providers are covered. Take your insurance information to your appointments. WHO TO CALL AND WHEN: Medical Emergencies: For questions or emergencies related to your hospital stay, please contact the Inpatient Behavioral Health Unit at [phone]. A tool lathe operator is on-call 23/03 for the Behavioral Health Unit for emergencies At any time you feel your situation is an emergency, you may also call 911 immediately. Your Doctors Instructions noted above were prepared by provider Geena Arevalo MD. Prescriptions: New bupropion HCl 100 mg Tablet Sustained-Release 12 Hr 100 mg PO QAM 30 Days Qty: 30 RF: 0 Continued escitalopram oxalate [Lexapro] 20 mg Tablet 20 mg PO DAILY RF: 0 Stand-Alone Forms: My [employer] Discharge Orders: Discharge Order (Routine); Ordered 12/04/18 Ordered By: Geena Arevalo Admission Data Admit Date/Time: 12/02/18 06:13 Attending Provider: Phoebe Galo Admit Provider: Phoebe Galo Primary Care Provider: PCP,YON Service: Psychiatry Other Interventions: PSY Interdisciplinary Discharge Planning Last Done: 12/03/18 15:48 Pending Studies at Discharge: No
== END 2018-12-04 17:52 | disposition home or self-care (01) | DRG 885 ==
LOC: EDSEX → ED 01:42 → 3S 06:13